=== PATIENT | male | born 1970 | race Caucasian/White ===

== ENCOUNTER 2023-12-14 09:20 | Emergency (ER) | payer OTHER ==
[2023-12-14 09:31] VITALS: BP 137/80; PULSE 89; RESP 20; TEMP 97.9
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
[2023-12-14 11:12] LABS: Appearance,Urine Clear (Clear); Bilirubin,Urine Negative (Negative); Blood,Urine Negative (Negative); Color,Urine Colorless; Glucose,Urine (UA) 4+ (Negative); Ketones,Urine Negative (Negative); Leukocyte Esterase,Urine Negative (Negative); Nitrite,Urine Negative (Negative); PH, Urine 6.5 (5.0-8.0); Protein,Urine Negative (Negative); Specific Gravity,Urine 1.034 (1.001-1.035); Urobilinogen,Urine <2.0 mg/dL (<2.0)
--- NOTE | 2023-12-14 11:41 | XR ---
EXAM TYPE: LUMBAR SPINE X RAY SERIES COMPARISON: NONE HISTORY: Back pain TECHNIQUE: 4 views are submitted. FINDINGS: Alignment is anatomic. The pedicles are intact. The transverse processes are intact. There is no d iffuse osteopenia and multilevel degenerative disc disease. There is an age-indeterminate mild superi or endplate compression fracture of L3, L2 and a moderate wedge fracture L1. Multilevel facet arthrop athy. Multilevel degenerative disc disease. IMPRESSION: 1. Age-indeterminate moderate wedge fracture L1. 2. Age-indeterminate mild superior endplate compression fracture L2 and L3. 3. Osteopenia.
--- NOTE | 2023-12-14 11:43 | XR ---
EXAMINATION TYPE: XR thoracic spine complete DATE OF EXAM: 12/14/2023 COMPARISON: NONE HISTORY: Pain TECHNIQUE: 3 views submitted FINDINGS: Alignment is anatomic. There is no compression deformities. Diffuse osteopenia with multilevel degen erative disc disease. Age-indeterminate moderate wedge fracture L1. Postsurgical changes involving th e shoulder. Mild superior endplate compression deformity at T4. IMPRESSION: 1. Age-indeterminate moderate wedge fracture L1. 2. Age-indeterminate mild superior endplate compression fracture T4. 3. Osteopenia with multilevel [id number] degenerative disc disease.
[2023-12-14] MEDS: GABAPENTIN 400 MG CAP PO STA (12:37)
== END 2023-12-14 12:38 | disposition home or self-care (01) ==
LOC: EC 09:20
DX: S32.009A Unspecified fracture of unspecified lumbar vertebra, initial encounter for closed fracture (principal); F17.200 Nicotine dependence, unspecified, uncomplicated; Z88.8 Allergy status to other drugs, medicaments and biological substances; X58.XXXA Exposure to other specified factors, initial encounter
CPT/HCPCS: 72072; 72110; 81003; 99283